=== PATIENT | male | born 1960 | race Two or more races ===

== ENCOUNTER 2018-04-04 07:52 | Outpatient (CLI) | payer OTHER | END 2018-04-04 10:15 | disposition home or self-care (01) | LOC: SONOGRAMA 07:52 | DX: E04.2 Nontoxic multinodular goiter (principal) ==

== ENCOUNTER 2025-05-10 09:15 | Outpatient (CLI) | payer OTHER | END 2025-05-10 09:21 | disposition home or self-care (01) | LOC: SONOGRAMA 09:15 | PROVIDERS: ATTEND Pathology Anatomic Pathology & Clinical Pathology | DX: D34 Benign neoplasm of thyroid gland (principal); E07.89 Other specified disorders of thyroid; E04.2 Nontoxic multinodular goiter ==